=== PATIENT | male | born 1950 | race Caucasian/White ===

== ENCOUNTER 2022-04-08 05:53 | Inpatient (IN) ==
[2022-03-26 20:43] LABS: Basophils # (Auto) 0.06 K/mcL (0.00-0.30); Eosinophils # (Auto) 0.35 K/mcL (0.00-0.70); Eosinophils % (Auto) 5.7 % (0.0-7.0); Hematocrit 46.9 % (40.1-51.0); Hemoglobin 15.6 g/dL (13.7-17.5); Lymphocytes # (Auto) 1.26 K/mcL (1.50-4.80); Lymphocytes % (Auto) 20.5 % (15.5-49.0); Mean Cell Volume 95.1 fL (80.0-100.0); Mean Corpuscular HGB Conc 33.3 g/dL (31.0-36.0); Mean Platelet Volume 10.4 fL (7.4-10.4); Monocytes # (Auto) 0.58 K/mcL (0.10-0.90); Monocytes % (Auto) 9.4 % (1.0-12.0); Neutrophils % (Auto) 63.2 % (38.0-78.0); Platelet Count 248 K/mcL (140-440); RBC 4.93 M/mcL (4.63-6.08); Red Cell Distribution Width 13.2 % (11.5-14.5); WBC 6.2 K/mcL (4.5-11.0)
[2022-03-26 20:54] LABS: Blood Urea Nitrogen 17 mg/dL (8-23); Calcium 8.9 mg/dL (8.6-10.4); Carbon Dioxide 24 mmol/L (22-30); Chloride 104 mmol/L (96-108); Glomerular Filtration Rate 96; Glucose 94 mg/dL (70-105)
[2022-03-26 21:02] LABS: Partial Thromboplastin Time 39.1 sec (20.0-37.0)
[2022-03-26 21:15] LABS: Prothrombin Time 23.6 sec (11.9-14.5)
--- NOTE | 2022-03-29 07:20 | EKG ---
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 Measurements Intervals [place] Rate: 80 P: 68 NM: 190 QRS: 10 QRSD: 146 T: 47 QT: 426 QTc: 492 Interpretive Statements Sinus rhythm Right bundle branch block Electronically Signed On 03-29-2022 7:20:01 PDT by Edison Toney M.D. /store/M0/[id number]
[~2022-04-08 05:53] MED LIST: IPRATROPIUM/ALBUTEROL 3 ML AMPUL.NEB NEB PRN; SCOPOLAMINE 1 PATCH PATCH TOPICAL PRN
[2022-04-08] MEDS ORDERED: ceFAZolin 2 GM in DEXTROSE 5% IN WATER 50 ML IV SCH (06:00)
[2022-04-08 07:12] LABS: Prothrombin Time 14.1 sec (11.9-14.5)
[2022-04-08] MEDS ORDERED: LIDOCAINE W/EPI 1% 20 ML VIAL IJ ONE (07:42)
[2022-04-08] MEDS ORDERED: BUPIVACAINE 0.25% 50 ML VIAL IJ ONE (07:42)
[2022-04-08] MEDS ORDERED: fentaNYL 100 MCG/2 ML VIAL IV ONE (07:45)
[2022-04-08] MEDS ORDERED: KETAMINE 50 MG/ML Syringe (ANEST) IV ONE (07:45)
[2022-04-08] MEDS ORDERED: MAGNESIUM SULFATE 2 GM/50 ML BAG IV ONE (07:45)
[2022-04-08] MEDS ORDERED: ePHEDrine 50 MG/5 ML SYRINGE (ANEST) IV ONE (07:45)
[2022-04-08] MEDS ORDERED: DEXAMETHASONE 10 MG/ML VIAL ONE (07:45)
[2022-04-08] MEDS ORDERED: MIDAZOLAM 2 MG/2 ML VIAL ONE (07:45)
[2022-04-08] MEDS ORDERED: ROCURONIUM 10 MG/ML ML IV ONE (07:45)
[2022-04-08] MEDS ORDERED: LIDOCAINE HCL/PF 100 MG/5 ML SYRINGE IV ONE (07:45)
[2022-04-08] MEDS ORDERED: PHENYLephrine 1 MG/10 ML SYRINGE (ANEST) ONE (07:45)
[2022-04-08] MEDS ORDERED: ONDANSETRON 4 MG/2 ML VIAL ONE (07:45)
[2022-04-08] MEDS ORDERED: PROPOFOL 200 MG/20 ML VIAL IV ONE (07:45)
[2022-04-08] MEDS ORDERED: SUGAMMADEX SODIUM 200 MG/2 ML VIAL IV ONE (07:45)
[2022-04-08] MEDS ORDERED: GLYCOPYRROLATE 0.2 MG/ML VIAL IV ONE (07:45)
[2022-04-08] MEDS ORDERED: MEPERIDINE 25 MG/ML VIAL IV PRN (10:41)
[2022-04-08] MEDS ORDERED: METOCLOPRAMIDE 10 MG/2 ML VIAL IV PRN (10:41)
[2022-04-08] MEDS ORDERED: ACETAMINOPHEN 1,000 MG/100 ML BAG IV ONE (10:41)
[2022-04-08] MEDS ORDERED: LABETALOL 5 MG/ML ML IV PRN (10:41)
[2022-04-08] MEDS ORDERED: MEPERIDINE 50 MG/ML VIAL IM PRN (10:41)
[2022-04-08] MEDS ORDERED: IPRATROPIUM/ALBUTEROL 3 ML AMPUL.NEB NEB PRN (10:41)
[2022-04-08] MEDS ORDERED: FLUMAZENIL 0.1 MG/ML ML IV PRN (10:41)
[2022-04-08] MEDS ORDERED: morphine 2 MG/ML VIAL IV PRN (10:41)
[2022-04-08] MEDS ORDERED: LACTATED RINGERS 250 ML IV PRN (10:41)
[2022-04-08] MEDS ORDERED: PROMETHAZINE 25 MG/ML VIAL IM PRN (10:41)
[2022-04-08] MEDS ORDERED: HYDROmorphone 0.5 MG/0.5 ML SYRINGE IV PRN ×2 (10:41→10:48)
[2022-04-08] MEDS ORDERED: PROMETHAZINE 25 MG/ML VIAL IV PRN (10:41)
[2022-04-08] MEDS ORDERED: ONDANSETRON 4 MG/2 ML VIAL IV PRN ×2 (10:41→10:48)
[2022-04-08] MEDS ORDERED: NALOXONE HCL 0.4 MG/ML VIAL IV PRN (10:41)
[2022-04-08] MEDS ORDERED: LACTATED RINGERS 1,000 ML IV SCH (10:45)
[2022-04-08] MEDS ORDERED: oxyCODONE HCL 5 MG TABLET PO PRN (10:48)
[2022-04-08] MEDS ORDERED: IBUPROFEN 600 MG TABLET PO PRN (10:48)
--- NOTE | 2022-04-08 10:48 | Operative Note ---
Brief Operative Note Date of procedure: 04/08/22 Pre-op diagnosis: Adenocarcinoma rectosigmoid junction Post-op diagnosis: same Procedure: Robotic assisted sigmoid colectomy Grafts/Implants: No Anesthesia: GETA Findings: Adenocarcinoma at approximately 15 cm Complications: none Surgeon: Ramon Montano Spinner Tender: Marisa Lomas Estimated blood loss (cc): 50 Specimens Removed/Pathology: other (Sigmoid colon, anastomotic donuts) Condition: stable Operative Note Operative Note: This is a pleasant 71-year-old gentleman who presents following a screening colonoscopy with a partially circumferential adenocarcinoma at 15 cm. Risk, benefits, alternatives to the procedure were discussed with the patient at length he verbalized understanding and desire to continue with the procedure. Patient was taken main operating room placed upon the operative table. General anesthesia was induced over endotracheal tube. Patient is placed in a modified lithotomy position. Patient's prepped and draped in the standard sterile surgical fashion. Surgical timeout was taken to verify patient and procedure being performed. 1% lidocaine half percent Marcaine was used for local anesthesia. Left side incision was made in the abdominal cavity was entered under direct vision using a 8 mm da David Optiview trocar. Abdominal cavity was insufflated with carbon o xide and visual inspection revealed no injuries. 12 mm right lower quadrant and 2 8 mm left upper quadrant trochars were then placed in the standard fashion under direct vision. The da David robot was docked in the standard fashion. Attention was then turned to the pelvis where exploration showed tattooing high on the rectum, there is a large amount of adhesions on the lateral sidewall these were carefully taken down with blunt and sharp dissection to fully mobilize the sigmoid colon. At this point to verify the location of the tumor a colonoscope was introduced through the rectum the tattooing was just distal to the circumferential tumor this was noted in the abdomen. Next the peritoneum was pushed on stretch the peritoneum was entered and the meso sigmoid and the mesial rectum was carefully dissected with blunt and electrocautery dissection. This was carried out in the mesorectal plane just distal to the area of tattooing. The mesocolon dissection was carried superiorly but the FLOR was not transected. The rectum was then circumferentially cleared approximately 5 cm distal to the mass the rectum was then transected with a robotic green load on the stapler. A good area of proximal transection was picked out, IC-Green was used to verify good blood flow, the mesentery of the colon was then transected with a vessel sealing device down to the transition spot the colon was circumferentially cleared blood flow was once again inspected with IC-Green and then the sigmoid colon was transected approximately 15 cm proximal to the mass. This specimen was placed in the right lower quadrant and the rectum was sized with EEA sizers up to 33 cm therefore a 31 cm EEA stapler was chosen, the anvil was placed through the right lower quadrant incision into the abdomen the end of the descending colon was opened, the anvil was placed into the end of the colon and then pursestring suture of 3-0 Prolene was used to secure it. A 31 EEA stapler was then passed up through the rectum, the stapler was opened and the needle was brought out just inferior to the staple line to ensure only 1 crossing staple line. The anvil was then attached and a standard EEA stapled anastomosis was performed without difficulty after ensuring the colon laid without the mesentery being twisted. Once this was done a colonoscope was used to visualize the anastomosis, the anastomosis distended without difficulty, there was no evidence of leak and the anastomosis laid without tension in the pelvis. IC-Green was once again used to verify good blood supply to the anastomosis, blood supply cross anastomosis without difficulty. The robotic instruments were then undocked the robot was undocked in the standard fashion, the specimen was grasped through the right lower quadrant incision brought out through that incision and passed off the field for surgical pathology. Hemostasis was assured, the trochars were all removed under direct vision and the trocar sites were inspected for hemostasis. The right lower quadrant incision was then closed with looped 0 PDS suture all skin incisions were closed with 4-0 Monocryl sutures. Skin glue dressings were applied. Patient was then awakened from anesthesia transferred postanesthesia care unit awake alert in good condition.
[2022-04-08] MEDS: DEXTROSE 5%-1/2NS 1,000 ML IV SCH ×2 (11:00→20:42)
[2022-04-08] MEDS: fentaNYL 100 MCG/2 ML VIAL IV PRN ×4 (11:08→11:25)
[2022-04-08] MEDS: KETOROLAC 30 MG/ML VIAL IV SCH (13:44)
[2022-04-08] MEDS: ACETAMINOPHEN 325 MG TABLET PO PRN ×2 (13:45→22:00)
[2022-04-08] MEDS: SENNOSIDES 1 TABLET PO SCH (20:21)
[2022-04-08] MEDS: DOCUSATE SODIUM 100 MG CAPSULE PO SCH (20:21)
[2022-04-09] MEDS: DEXTROSE 5%-1/2NS 1,000 ML IV SCH (04:02)
[2022-04-09] MEDS: ACETAMINOPHEN 325 MG TABLET PO PRN ×4 (04:07→23:26)
[2022-04-09 06:30] LABS: Basophils # (Auto) 0.01 K/mcL (0.00-0.30); Basophils % (Auto) 0.1 % (0.0-2.0); Eosinophils # (Auto) 0 K/mcL (0.00-0.70); Eosinophils % (Auto) 0 % (0.0-7.0); Hematocrit 41.2 % (40.1-51.0); Hemoglobin 13.7 g/dL (13.7-17.5); Lymphocytes # (Auto) 0.87 K/mcL (1.50-4.80); Lymphocytes % (Auto) 8.5 % (15.5-49.0); Mean Cell Volume 94.7 fL (80.0-100.0); Mean Corpuscular HGB Conc 33.3 g/dL (31.0-36.0); Monocytes % (Auto) 11.7 % (1.0-12.0); Neutrophils % (Auto) 79.3 % (38.0-78.0); Platelet Count 217 K/mcL (140-440); RBC 4.35 M/mcL (4.63-6.08); Red Cell Distribution Width 12.9 % (11.5-14.5); WBC 10.2 K/mcL (4.5-11.0)
[2022-04-09 07:01] LABS: Blood Urea Nitrogen 9 mg/dL (8-23); Calcium 8.3 mg/dL (8.6-10.4); Carbon Dioxide 23 mmol/L (22-30); Chloride 106 mmol/L (96-108); Glomerular Filtration Rate 102; Glucose 131 mg/dL (70-105)
[2022-04-09] MEDS: ENOXAPARIN 30 MG/0.3 ML SYRINGE SQ SCH (08:10)
[2022-04-09] MEDS: DOCUSATE SODIUM 100 MG CAPSULE PO SCH ×2 (08:10→20:44)
--- NOTE | 2022-04-09 08:51 | General Surgery Progress Note ---
SUBJECTIVE Subjective Patient information: Note initiated : 04/09/22 at 8:49 am Service Date, if different from initiated Date: [] Patient: Yonis Manriquez 71 y/o M admitted on 04/08/22 for Robotic Flexible Sigmoidoscopy OR/ANESTHESIA. Chief Complaint: [] Interval history: Postop day #1 status post robotic sigmoid colectomy. Patient is up and ambulatory, feels well this morning other than mild abdominal cramping. Patient has small bowel movement, is passing flatus without difficulty. Constitutional Vitals: Vital Signs Temp Pulse Resp BP Pulse Ox O2 Del Method O2 Flow Rate 98.2 F 73 20 131/81 95 6 04/09/22 07:05 04/09/22 07:05 04/09/22 07:05 04/09/22 07:05 04/09/22 07:05 04/09/22 07:01 04/08/22 11:20 Period Temp Pulse Resp BP Sys/Courtney Pulse Ox O2 Del Method O2 Flow Rate Last 24 Hr 97.3 F-98.7 F 72-100 12-20 116-149/69-96 90-100 Room Air-Room Air 6-6 Intake and Output 04/08/22 04/09/22 04/09/22 21:59 05:59 13:59 Intake Total 3400 1717 556 Output Total 1350 1250 775 Balance 2050 467 -219 Weight 165 lb 4.8 oz Intake & Output: Intake & Output 04/08/22 04/09/22 04/09/22 21:59 05:59 13:59 Intake Total 3400 1717 556 Output Total 1350 1250 775 Balance 2050 467 -219 Weight 165 lb 4.8 oz Intake: IV 1000 917 556 Dextrose 5%-1/2Ns IV Solution 1 1000 917 556 ,000 ml @ 125 mls/hr IV .Q8H [facility] Rx#:[id number] Oral 2400 800 Output: Urine Catheter Amount 1350 1250 775 Other: Urine Appearance Clear Clear Clear Uretheral (Crystal) Clear Clear Urine Color Yellow Yellow Pale Uretheral (Crystal) Yellow Pale Urine Odor Normal Uretheral (Crystal) Normal Stool Size Small Stool Color Brown Stool Consistency Soft General appearance: cooperative and no acute distress GI/Abdominal GI/Abdominal exam: Present soft and tenderness; Absent distended Additional comments: Incisions are clean dry and intact A/P Assessment and plan (1) Cancer of sigmoid colon: Plan: Postop day #1 doing a as expected. CAROL Crystal, advance diet to full, Hep-Lock fluid. Restart home medications. Status: Chronic Time Spent With Patient Time: Total time spent is greater than 50% in coordination of care (as documented) at patient's floor/unit and/or counseling patient:
[2022-04-09] MEDS: KETOROLAC 30 MG/ML VIAL IV SCH (14:27)
[2022-04-09] MEDS ORDERED: SIMVASTATIN 40 MG TABLET PO SCH (16:00)
[2022-04-09] MEDS ORDERED: FLUTICASONE/SALMETEROL 250/50 INHALER #14 INH SCH (16:00)
[2022-04-09] MEDS ORDERED: WARFARIN 5 MG TABLET PO SCH (16:00)
[2022-04-09] MEDS: SENNOSIDES 1 TABLET PO SCH (20:44)
[2022-04-09] MEDS: 0.9 % SODIUM CHLORIDE 10 ML SYRINGE IV SCH (20:44)
[2022-04-10] MEDS: 0.9 % SODIUM CHLORIDE 10 ML SYRINGE IV SCH (06:16)
[2022-04-10] MEDS: ACETAMINOPHEN 325 MG TABLET PO PRN (06:45)
[2022-04-10 06:55] LABS: INR 1.1 (0.9-1.1); Prothrombin Time 14.8 sec (11.9-14.5)
[2022-04-10] MEDS: ENOXAPARIN 30 MG/0.3 ML SYRINGE SQ SCH (08:18)
[2022-04-10] MEDS: DOCUSATE SODIUM 100 MG CAPSULE PO SCH (08:18)
--- NOTE | 2022-04-10 08:44 | General Surgery Progress Note ---
SUBJECTIVE Subjective Patient information: Note initiated : 04/10/22 at 8:42 am Service Date, if different from initiated Date: [] Patient: Yonis Manriquez 71 y/o M admitted on 04/08/22 for Robotic Flexible Sigmoidoscopy OR/ANESTHESIA. Chief Complaint: [] Interval history: Postop day #2 status post robotic sigmoid colectomy. Patient is ambulatory, tolerating diet, passing flatus and had a bowel movement. He has no pain that is not controlled with minimal Tylenol. Pertinent ROS: No fevers chills nausea or vomiting Constitutional Vitals: Vital Signs Temp Pulse Resp BP Pulse Ox O2 Del Method O2 Flow Rate 98.1 F 81 16 137/89 95 6 04/10/22 08:00 04/10/22 04:00 04/10/22 08:00 04/10/22 08:00 04/10/22 08:00 04/10/22 08:00 04/08/22 11:20 Period Temp Pulse Resp BP Sys/Courtney Pulse Ox O2 Del Method O2 Flow Rate Last 24 Hr 97.9 F-98.3 F 72-81 16-20 133-144/73-91 94-96 Room Air-Room Air Intake and Output 04/09/22 04/10/22 04/10/22 21:59 05:59 13:59 Intake Total 360 325 Output Total 1 Balance 360 325 -1 Weight 163 lb 11.2 oz Intake & Output: Intake & Output 04/09/22 04/10/22 04/10/22 21:59 05:59 13:59 Intake Total 360 325 Output Total 1 Balance 360 325 -1 Weight 163 lb 11.2 oz Intake: Oral 360 325 Output: Void Amount 1 Other: Meal Dinner Percent of Meal Consumed 75% Feeding Ability Independent Urine Appearance Clear Clear Urine Color Bright Yellow Bright Yellow Urine Odor Normal Stool Size Small Stool Color Brown Stool Consistency Soft Liquid # Voids 1 1 General appearance: cooperative and no acute distress GI/Abdominal GI/Abdominal exam: Present soft and tenderness; Absent distended Additional comments: Incisions are clean dry intact, right lower quadrant incision with mild bruising A/P Assessment and plan (1) Cancer of sigmoid colon: Plan: Postop day #2, tolerating diet, has return of bowel function, is ambulatory and pain well controlled. Plan: Home today. Status: Chronic Time Spent With Patient Time: Total time spent is greater than 50% in coordination of care (as documented) at patient's floor/unit and/or counseling patient:
--- NOTE | 2022-04-10 08:46 | Discharge Summary ---
Discharge Provider Provider IMPORTANT FOLLOW-UP INFORMATION FOR PCP: Patient information: Note initiated : 04/10/22 at 8:45 am Service Date, if different from initiated Date: [] Patient: Yonis Manriquez 71 y/o M admitted on 04/08/22 for Robotic Flexible Sigmoidoscopy OR/ANESTHESIA. Chief Complaint: [] Date of admission: 04/08/22 05:53 Discharge date: 04/10/22 Primary care physician: Kristofer Colin COURSE Hospital Course Hospital course: This is a pleasant 71-year-old gentleman who was found to have a rectosigmoid junction adenocarcinoma on screening colonoscopy. He was admitted for a robotic assisted sigmoid colectomy. Postop he has done well, had return of bowel function on postop day #1, diet was advanced, he is ambulatory and is tolerating diet. Discharge diagnosis: Status post robotic assisted sigmoid colectomy Time Spent with Patient Time attestation: Total time spent providing and/or coordinating discharge services: Time spent: Less than 30 minutes Physical Examination Vital Signs Vital signs: Temp Pulse Resp BP Pulse Ox O2 Del Method O2 Flow Rate 98.1 F 81 16 137/89 95 6 04/10/22 08:00 04/10/22 04:00 04/10/22 08:00 04/10/22 08:00 04/10/22 08:00 04/10/22 08:00 04/08/22 11:20 Discharge Plan Patient/Caregiver Discharge Instructions Activity: increase activity as tolerated Diet: Regular Diet Activity Restrictions/Additional Instructions: Increase activity as tolerated, no weightlifting restrictions. Advance diet as tolerated. Follow-up with me in 1 week. May resume normal showering. Prescriptions: Continued warfarin 2.5 mg Tablet 2.5 mg PO SUTUTH@1600 Label Comments: PT TO BEGIN HOLDING FOR SURGERY 5 DAYS PRIOR. simvastatin 20 mg Tablet 20 mg PO SUTUTH@1600 fluticasone propion-salmeterol [Advair Diskus] 250-50 mcg/dose blister with device 1 inh INHALATION DAILY@1600 simvastatin 40 mg tablet 40 mg PO MOWEFRSA@1600 Rx Instructions: 40 mg Uob-Pgs-Shm-Sat. 20 mg Wubq-Msxrd-Utb warfarin 5 mg tablet 5 mg PO MOWEFRSA@1600 Protocol: Dose Management Protocol Text: Patient Instructed to take: warfarin 5 mg (1 Tab) on GOMEZ, MO, WE, FR, SA warfarin 5 mg (0.5 Tab) on , Rx Instructions: Take one tablet (5mg) once daily x five days per week and one-half tablet (2.5mg) two days per week. PO Follow Up Plan Follow up with: Ramon Montano MD [Physician] - 04/23/22 10:00 am Patient Disposition: Home, Self-Care Discharge Orders: Discharge Order (Routine); Ordered 04/10/22 Ordered By: Ramon Montano Pending Pending Pending: Resuscitation Status Resuscitate (Full Code) Diet Full Liquid Diet Start TueApr 09 814 Acetaminophen (Acetaminophen 325 Mg Tablet) 650 mg PO Q6HP PRN; Protocol PRN Reason: Per Pain Protocol/Fever > 101 Last Admin: 04/10/22 06:45 Dose: 650 mg Documented By: Admin: 04/09/22 23:26 Dose: 650 mg Documented By: Admin: 04/09/22 18:03 Dose: 650 mg Documented By: Admin: 04/09/22 10:07 Dose: 650 mg Documented By: Admin: 04/09/22 04:07 Dose: 650 mg Documented By: Admin: 04/08/22 22:00 Dose: 650 mg Documented By: Admin: 04/08/22 13:45 Dose: 650 mg Documented By: [id number] Docusate Sodium (Docusate Sodium 100 Mg Capsule) 100 mg PO BID [facility] Last Admin: 04/10/22 08:18 Dose: 100 mg Documented By: Admin: 04/09/22 20:44 Dose: 100 mg Documented By: Admin: 04/09/22 08:10 Dose: 100 mg Documented By: Admin: 04/08/22 20:21 Dose: 100 mg Documented By: JAMIE Enoxaparin Sodium (Enoxaparin 30 Mg/0.3 Ml Syringe) 30 mg SQ DAILY [facility] Last Admin: 04/10/22 08:18 Dose: 30 mg Documented By: Admin: 04/09/22 08:10 Dose: 30 mg Documented By: YONI Ketorolac Tromethamine (Ketorolac 30 Mg/Ml Vial) 15 mg IV Q6HP [facility]; Protocol Stop: 04/10/22 10:52 Last Admin: 04/09/22 14:27 Dose: 15 mg Documented By: Admin: 04/08/22 13:44 Dose: 15 mg Documented By: [id number] Fluticasone/Salmeterol (Fluticasone/Salmeterol 250/50 Inhaler #14) 1 puff INH DAILY@1600 [facility] Last Admin: 04/09/22 15:57 Dose: 1 puff Documented By: YONI Senna (Sennosides 1 Tablet) 2 tab PO HS [facility] Last Admin: 04/09/22 20:44 Dose: 2 tab Documented By: Admin: 04/08/22 20:21 Dose: 2 tab Documented By: JAMIE Simvastatin (Simvastatin 40 Mg Tablet) 40 mg PO MOWEFRSA@1600 [facility] Last Admin: 04/09/22 15:57 Dose: 40 mg Documented By: YONI Sodium Chloride (0.9 % Sodium Chloride 10 Ml Syringe) 10 ml IV Q8 [facility] Last Admin: 04/10/22 06:16 Dose: 10 ml Documented By: Admin: 04/09/22 20:44 Dose: 10 ml Documented By: JAMIE Warfarin Sodium (Warfarin 5 Mg Tablet) 5 mg PO MOWEFRSA@1600 [facility] Last Admin: 04/09/22 15:57 Dose: 5 mg Documented By: YONI Shift Summary 04/10/22 02:58 Shift Summary by Joaquin Mott Pt had rested fairly well again tonight. ABD pain has been minimal - PO Tylenol 650mg given @ 2325 - no other pain meds required as yet. No N/V. No BM tonight. Pt voiding QS into toilet. Saline lock to his RT F/A - flushed & patent. 4x ABD lap sites well approximated w/ Dermabond - open to air. He has been up in barrera AMB (I) x2 - gait stable w/o device. (I) in bd mobility. VS - WNL on R.A.. He is A&O x4, calm, pleasant, & cooperative. Initialized on 04/10/22 02:58 - END OF NOTE
[2022-04-11] MEDS ORDERED: WARFARIN 2.5 MG TABLET PO SCH (16:00)
[2022-04-11] MEDS ORDERED: SIMVASTATIN 20 MG TABLET PO SCH (16:00)
== END 2022-04-10 10:00 | disposition home or self-care (01) | DRG 331 ==
LOC: MEDSUR 05:53 → EDSTATUS 07:30
PROVIDERS: ADMIT Surgery; ATTEND Surgery